=== PATIENT | female | born 1975 | race Caucasian/White ===

== ENCOUNTER 2016-11-21 05:07 | Inpatient (IN) ==
[2016-11-21] MEDS ORDERED: Ondansetron 4 MG/2 ML VIAL IVP PRN (10:06)
[2016-11-21] MEDS ORDERED: Naloxone 0.4 MG/ML INJ IVP PRN (10:06)
[2016-11-21] MEDS ORDERED: Acetaminophen 325 MG TABLET PO PRN (10:06)
[2016-11-21] MEDS ORDERED: *HR* LORazepam 2 MG/ML VIAL IVP PRN (10:24)
[2016-11-21] MEDS: 0.9 % Sodium Chloride 1,000 ML IVC SCH (11:42)
--- NOTE | 2016-11-21 13:31 | Internal Med History&Physical ---
<Adria Uriarte - Last Filed: 11/21/16 15:39> Date of Encounter: 11/21/16 Time of Encounter: 09:45 Assessment and Plan (1) Altered mental status Current visit: Yes Status: Acute Patient presents with acute altered mental status related to her current overdose. She is somnolent during examination and responds little to none to questions posed to her. She did report that she took an overdose of her seizure medication Vimpat. Her urine tox screen is positive for benzodiazepines, opiates , oxycodone, and marijuana. Patient to be placed as NPO due to AMS and somnolence. Dysphagia screen ordered. Seizure precautions ordered with padded bed rails, psychiatric consult, sitter, and safety/falls precautions. Ativan ordered 1 mg Q6 PRN for agitation/anxiety. Patient to be monitored closely for signs of increased depression, agitation, or suicidal ideations. Qualifiers: Altered mental status type: somnolence Qualified Code(s): R40.0 - Somnolence (2) Polysubstance abuse Current visit: Yes Status: Acute Patient presents with acute polysubstance abuse as evidenced by her urine tox screen which was positive for oxycodone, benzodiazepines, opiates, and marijuana. It is unclear if the patient's intake of the polypharmacy was intentional as an overdose attempt as the patient is unable to verify this. Patient has a history of previous suicide attempt by drinking Drano. Psychiatric consult and sitter ordered. (3) Hypokalemia Current visit: Yes Status: Acute Patient presents with hypokalemia related to current potassium level of 3.4. Patient to receive IV potassium of 10 Meq x1. Follow-up labs ordered to monitor level. (4) Depression Current visit: Yes Status: Chronic Patient has a history of chronic depression that she has previously been treated for but is currently not taking any prescriptions for this diagnosis. Will monitor patient for signs of increasing depression/suicidal ideations. Sitter ordered. Qualifiers: Depression Type: unspecified Qualified Code(s): F32.9 - Major depressive disorder, single episode, unspecified (5) DVT prophylaxis Current visit: Yes Status: Acute Patient to be placed on DVT prophylaxis due to current admission protocol and bed rest status. Heparin 5,000 units SQ Q8 ordered. Internal Medicine - H&P: HPI Chief complaint: Altered Mental Status Admitted From: Emergency Dept Plans for Post Hospital Care: Home History of present illness: Ms. Baron is a 41 year old female who presents from the ED with chief complaint of altered mental status. During examination, patient is somnolent and barely responds or answers to questions posed to her. Patient is alert and oriented x0. Notes from the ED admission state that the patient's and daughter report a history of seizures in the patient for which she takes Vimpat. Patient's reports she is not currently taking any benzodiazepines or pain medications to his knowledge, but was taking an antibiotic for UTI. He states she had a grand mal type seizure last night when she got up from the couch. He states she fell over and experienced decreased responsiveness. Patient's family reports loss of appetite, malaise, seizure, weakness, difficulty walking, and decreased responsiveness. They deny chest pain, recent illness, cough, diaphoresis, fever, chills, headaches, nausea, vomiting, shortness of breath, diarrhea, or changes in vision. Patient has a medical history including seizures, thyroid disease, and valvular heart disease. Patient's family reports she uses alcohol occasionally, as well as smokes marijuana. Patient's tox screen is positive for opiates, oxycodone, benzodiazepines, and marijuana. It is unclear at this point if the patient's overdose was an intentional suicide attempt. Patient is at high risk based on current symptoms and positive tox screen for neurological, cardiac, and respiratory decline and will be placed as inpatient status with psychiatric consult ordered as well as sitter. Patient will be placed is nothing by mouth with seizure precautions including padded bedrails and Ativan 1 mg every 6 when necessary. Orders placed for urinalysis, test, routine EKG, IV fluids , and potassium replacement of 10 Meq 1. Patient to be monitored very closely. Time spent with patient 30 minutes. Past Med Surg Social Fam HX - Past Medical History Source: obtained from family Medical history: seizures, thyroid disease, valvular heart disease, other Psychiatric history: anxiety, panic disorder, other - Past Surgical History Surgical History: orthopedic, other, thyroidectomy, other - Social History Smoking Status: Current every day smoker Packs per day: 1 PPD Smokeless Tobacco Status: No Alcohol use: occasionally Drug use: marijuana Current living situation: Home, With Family Activity Level: Independent ambulation Recent Out of Country Travel Within the Last 8 Weeks: No Exposure or Possible Exposure to Illness During Travel: No - Family History Father Race: Family Member Ethnicity: Non- Living Status: Still Living Hx Family Cardiac Disorders: Yes (HD) Internal Medicine - H&P: Meds Lacosamide [Vimpat] 200 mg PO BID 11/21/16 [History] Allergies Erythromycin Base Allergy (Verified 11/21/16 14:01) Hives hydrocodone [From Vicodin] Allergy (Verified 11/21/16 14:01) Hives meperidine [From Demerol] Allergy (Verified 11/21/16 14:01) Hives Penicillins [PCN] Allergy (Verified 11/21/16 14:01) Hives Sulfa (Sulfonamide Antibiotics) Allergy (Verified 11/21/16 14:01) Hives vancomycin Allergy (Verified 11/21/16 14:01) Hives ROS unobtainable: due to mental status All Systems PM: A 10-system review of systems was performed and is negative for pertinent findings except as documented above in the HPI. - Constitutional Vitals: Resp BP Pulse Ox 20 131/82 95 11/21/16 06:41 11/21/16 06:41 11/21/16 08:05 General appearance: Present: A&O X 0, no acute distress, underweight - Head Head exam: Present: atraumatic, normocephalic - ENT ENT exam: Present: normal exam, normal external ear exam - Neck Neck exam general surgery: Present: normal inspection, supple, trachea midline. Absent: lymphadenopathy - Respiratory Respiratory exam: Present: CTAB. Absent: accessory muscle use, rales, rhonchi, wheezes - Cardiovascular Cardiovascular exam: Present: RRR, +S1, +S2. Absent: diastolic murmur, gallop, rubs, systolic murmur - GI/Abdominal GI/Abdominal exam: Present: normal bowel sounds, soft, no peritoneal signs. Absent: distended, tenderness - Rectal Rectal exam: Present: deferred - Additional comments: exam deferred. - Extremities Exam Extremities exam: Present: warm, radial pulses palpable and symetrical. Absent : calf tenderness, cyanotic, pedal edema - Back Exam Back exam: Present: normal inspection - Neurological Exam Neurological exam: Present: altered - Skin Skin exam: Present: dry, intact - VTE Documentation of Mechanical Device: Intermittent pneumatic compression device <Tellez-Jace Martinez - Last Filed: 11/21/16 16:33> Date of Encounter: 11/21/16 Internal Medicine - H&P: HPI History of present illness: Ms. Baron is a 41 year old female All Systems PM: A 10-system review of systems was performed and is negative for pertinent findings except as documented above in the HPI. - Constitutional Vitals: Pulse Resp BP Pulse Ox 56 18 118/75 96 11/21/16 15:46 11/21/16 15:46 11/21/16 15:46 11/21/16 15:46 - Attending Attestation I have seen and examined the patient. I have reviewed the orders and the note. Patient is a 41-year-old female with a past history of seizure disorder, thyroid disease, history of valvular heart disease, anxiety disorder and depression. Patient presented to the ED with altered mental status. On examination patient is drowsy but she is arousable. She is able to answer some questions and able to verbalize. She is able to follow simple commands. Her urine drug screen is positive for benzos, opiates, oxycodone and marijuana. Patient states that she takes oxycodone and marijuana recreationally. She denies cocaine use or heroin use. Patient has been somnolent since admission. Psychiatry has evaluated the patient and recommendations reviewed. Patient has acute encephalopathy likely metabolic secondary to possible overdose of oxycodone and benzodiazepines and opiates. Patient will require supportive care and IV fluids. She will be nothing by mouth. No family members present during my examination. Patient has been explained about her condition and plan of care. No unanswered questions. CODE STATUS full code. Heart rate 56, blood pressure 118/75, O2 sat 96% on room air. Heart S1, S2 no murmurs rubs. Lungs bilateral good entry no wheezes or crackles. Abdomen soft nontender no masses or guarding. Extremities all pulses strong and regular no edema. Neurological patient is drowsy but easily arousable, able to follow simple commands and able to verbalize, no obvious focal deficits.
--- NOTE | 2016-11-21 14:09 | Consult Note ---
Date of Encounter: 11/21/16 Time of Encounter: 13:45 Assessment & Recommendation (1) Altered mental status Current visit: No Status: Acute Assessment & Recommendation: Patient apparently took an overdose of her seizure medications in addition to whatever medication she may have taken that her was not aware of. She does appear to be confused and somnolent related to this overdose. Qualifiers: Altered mental status type: somnolence Qualified Code(s): R40.0 - Somnolence (2) Adjustment disorder with disturbance of conduct Current visit: Yes Status: Acute Assessment & Recommendation: Per , patient has impulsively hurt herself in the past when the relationship is not doing well. Apparently, and they have been considering leaving the relationship and she verbalized him that she overdosed on pills because of this. Patient has a history of impulsive behavior and recent overdose. Continue one to one. We will continue to monitor to determine if admission to 1A as necessary. (3) Depression Current visit: Yes Status: Acute Assessment & Recommendation: Patient has been treated for depression by her outpatient provider. Outpatient records reviewed. Currently no treatment for this. Patient has not seen her PCP in over 6 months. Because patient is still confused we will hold off on recommending any kind of antidepressants or intervention for this. Qualifiers: Depression Type: unspecified Qualified Code(s): F32.9 - Major depressive disorder, single episode, unspecified (4) Polysubstance abuse Current visit: Yes Status: Acute Assessment & Recommendation: Patient has urine tox positive for opiates, benzos, marijuana. It is unclear if this was recreational or if she took these medications as a part of an overdose. History of Present Illness Patient: new to practice Requesting Physician: Madhu Damian MD Reason for consult: Overdose attempt History of present illness: Ms. Baron is a 41 year old female with a history of depression and anxiety as well as a seizure disorder who presented to the hospital with altered mental status brought by EMS after her called them. Patient is somewhat groggy and states that she does not exactly remember what brought her to the hospital. She is oriented to person only at this time. She denies feeling depressed now. She denies recent suicide attempts or suicidal ideation. Spoke with patient's En at phone number [phone]. He states that yesterday evening patient was acting normally but started to become sleepy and looked like she may have had a seizure. He went to help her leg out of the bedroom and states that she then started vomiting and appeared to her like she was having another seizure. At that point she called 911. He states that their relationship has a lot of ups and downs and she was upset because he was thinking of leaving. She apparently did verbalize to him that she took all of her seizure medication. He is not aware of what other drug she might use but did state that she told him that she took a Percocet and Xanax yesterday as well. He believes that patient's behavior is attention seeking. To his knowledge she has never been admitted to a psychiatric facility. He was aware of the previous attempt of her drinking Drano back in February 2016. This, according to him, was also attention seeking behavior relating to another argument that they had. CC: Madhu Damian MD Past Med Surg Social Fam HX - Past Medical History Medical history: seizures, thyroid disease, valvular heart disease, other - Past Psychiatric History Psychiatric history: Reports: anxiety, depression, prior suicide attempt Past psychiatric history details: Patient has one previous suicide attempt at drinking Drano last February. She was not admitted psychiatrically for this. reports that she receives mental health treatment from her outpatient provider. Last appointment with her [facility] nurse practitioner was in March 2016. That also the last time she saw her neurologist. No previous admissions here at [facility]. She was taking Paxil one time for depression. Family psychiatric history: Unknown Family History of Suicide: Unknown - Past Surgical History Surgical History: orthopedic, other, thyroidectomy, other - Social History Smoking Status: Current every day smoker Smokeless Tobacco Status: No Alcohol use: occasionally Drug use: marijuana, prescription drug abuse Current living situation: With Family Activity Level: Independent ambulation - Family History Father History Unknown: Yes Race: Family Member Ethnicity: Non- Living Status: Still Living Hx Family Cardiac Disorders: Yes (HD) Medications & Allergies Lacosamide [Vimpat] 200 mg PO BID 11/21/16 [History] Allergies Erythromycin Base Allergy (Verified 11/21/16 14:01) Hives hydrocodone [From Vicodin] Allergy (Verified 11/21/16 14:01) Hives meperidine [From Demerol] Allergy (Verified 11/21/16 14:01) Hives Penicillins [PCN] Allergy (Verified 11/21/16 14:01) Hives Sulfa (Sulfonamide Antibiotics) Allergy (Verified 11/21/16 14:01) Hives vancomycin Allergy (Verified 11/21/16 14:01) Hives Review of Systems ROS unobtainable: due to patient condition Mental Status Exam Patient orientation: Yes Person Level of alertness: Sedated Patient appearance: Unkempt Behavior: other (Confused) Psychomotor activity: Slowed Eye contact: No Eye Contact Mood description: Euthymic/stable Affect description: other (Sleepy, lethargic) Speech pattern: Slowed, Rambling Speech volume: Soft/Quiet Thought process: Slowed Thinking Thought content: No Suicidal ideation, No Homicidal ideation Perceptual disturbances: Yes Reacting to internal stimuli Attention span: Unable to Focus, Unable to Sustain Attention Memory description: Immediate Impaired, Recent Impaired, Remote Impaired Patient reliability: Not Reliable Historian Intelligence estimate: Average Judgment: Poor Insight: None Results - Vital Signs Vital signs: Resp BP Pulse Ox 20 131/82 95 11/21/16 06:41 11/21/16 06:41 11/21/16 08:05 - Labs Labs: Laboratory Last Values Serum , Qual Negative (Negative) 11/21/16 11:00 Consult Discharge Plan - Plan Referrals: NONE,PCP [Primary Care Provider] -
[2016-11-21] MEDS: *HR* Heparin 5,000 UNIT/ML VIAL SQ SCH ×2 (14:53→23:57)
[2016-11-22] MEDS: 0.9 % Sodium Chloride 1,000 ML IVC SCH (04:37)
[2016-11-22 04:45] LABS: Basophils % 0.3 %; Hematocrit 39.5 % (35.3-44.9); Immature Granulocytes % 0.1 % (0-4); Lymphocytes # 2.1 K/mcL (0.6-4.6); Lymphocytes % 29.4 %; Mean Corpuscular HGB Conc 32.9 g/dL (31.6-35.5); Mean Corpuscular Hemoglobin 29.2 pg (28.0-33.3); Mean Corpuscular Volume 88.8 fL (83.0-100.0); Mean Platelet Volume 9.9 fL (9.4-12.4); Monocytes # 0.6 K/mcL (0.0-1.3); Monocytes % 8.4 %; Neutrophils # 4.4 K/mcL (1.6-8.9); Platelet Count 198 K/mcL (140-400); Red Blood Count 4.45 M/mcL (3.82-4.97); Segmented Neutrophils % 61.8 %
[2016-11-22 04:47] LABS: INR 1.1; Prothrombin Time 12.3 Seconds (9.4-12.1)
[2016-11-22 04:49] LABS: Activated Partial Thrombo Time 34.2 Seconds (26.0-36.0)
[2016-11-22 04:57] LABS: Alanine Aminotransferase 7 Units/L (0-55); Albumin 3.6 g/dL (3.5-5.0); Albumin/Globulin Ratio 1.4 (1.1-2.2); Alkaline Phosphatase 61 Units/L (38-126); Aspartate Amino Transferase 13 Units/L (5-34); BUN/Creatinine Ratio 7 (6-26); Bilirubin,Total 0.7 mg/dL (0.2-1.2); Blood Urea Nitrogen 5 mg/dL (7-20); Calcium 8.6 mg/dL (8.6-10.8); Carbon Dioxide 25 mEq/L (19-29); Chloride 112 mEq/L (98-109); Chol/HDL Ratio 3.4 (0-4.9); Cholesterol 177 mg/dL (< 200); Globulin 2.6 g/dL (2.4-3.5); Glucose 98 mg/dL (70-99); HDL Cholesterol 52 mg/dL (40-59); LDL Cholesterol,Calculated 115 mg/dL (0-99); Magnesium 1.9 mg/dL (1.6-2.6); Osmolality,Calculated 291 (280-300); Potassium 3.9 mEq/L (3.5-4.5); Sodium 142 mEq/L (136-145); Total Protein 6.2 g/dL (6.0-8.3); Triglycerides 52 mg/dL (< 150); eGFR For African Americans > 60 (> 60); eGFR For Non-African Americans > 60 (> 60)
[2016-11-22 07:14] VITALS: BP 127/95
--- NOTE | 2016-11-22 08:43 | Internal Med Progress Note ---
Date of Encounter: 11/22/16 Time of Encounter: 08:40 - Subjective Interval history: Pt seen and examined. She states she is doing well this morning and has no suicidal or homicidal thoughts at this time and claims that she took a few extra doses of her Vimpat after having a seizure last night. She is adamant about going home today and states she has a ride coming up in an hour. - Constitutional Vitals: Temp Pulse Resp BP Pulse Ox 97.4 F L 72 16 127/95 99 11/22/16 07:00 11/22/16 07:00 11/22/16 07:00 11/22/16 07:00 11/22/16 08:00 General appearance: Present: A&O X 0, no acute distress, underweight Internal Medicine: Result - Labs CBC & Chem 7: 11/22/16 04:22 11/22/16 04:22 Labs: Short CBC 11/22/16 Range/Units 04:22 WBC 7.2 (4.3-11.1) K/mcL Hgb 13.0 (11.5-15.4) g/dL Hct 39.5 (35.3-44.9) % Plt Count 198 (140-400) K/mcL Neutrophils # 4.4 (1.6-8.9) K/mcL BMP 11/22/16 04:22 Sodium 142 Potassium 3.9 Chloride 112 H Carbon Dioxide 25 BUN 5 L Creatinine 0.74 Glucose 98 Calcium 8.6 Liver Function 11/22/16 Range/Units 04:22 Total Bilirubin 0.7 (0.2-1.2) mg/dL AST 13 (5-34) Units/L ALT 7 (0-55) Units/L Alkaline Phosphatase 61 (38-126) Units/L Albumin 3.6 (3.5-5.0) g/dL - ABG Interpretation ABG results: PT/INR, D-dimer PT 12.3 Seconds (9.4-12.1) H 11/22/16 04:22 - VTE Documentation of Mechanical Device: Intermittent pneumatic compression device Consult Discharge Plan - Plan Referrals: NONE,PCP [Primary Care Provider] -
[2016-11-22] MEDS ORDERED: Nicotine 14 MG PATCH.TD24 TD SCH (09:00)
[2016-11-22] MEDS ORDERED: Pantoprazole 40 MG VIAL IVP SCH (09:00)
--- NOTE | 2016-11-22 12:33 | Psychiatry Progress Note ---
Date of Encounter: 11/22/16 Time of Encounter: 12:00 Subjective Interval history: Heather is seen today for follow-up after recent overdose on multiple drugs and alcohol as well as her seizure meds. Patient admits that she did overuse medication and that she was very upset by Monika she had with her and wanted to "let loose." She admits that this was an unsafe decision but states she was not trying to kill himself. We also discussed that she has a previous suicide attempt back in February patient admits that she did try to kill himself then. We discussed that this behavior is somewhat alarming and patient agreed that it was. She was hesitant to agree to stay in the hospital for psychiatric treatment and would prefer to go home with outpatient follow-up. She did not get outpatient follow-up after her overdose with Jodie and we discussed that that did not prevent this particular incident. She denies suicidal ideations today. She does report depression and anxiety. She does have relationship issues with which exacerbated problems. She is currently on no psych meds. We also discussed the importance of self-care patient states that she sees her neurologist once a year. Outpatient records have been reviewed and patient has no follow-up appointment scheduled for either her PCP or her neurologist. When asked how she is going to get more seizure medication she admits she will need to call the doctor because she does not take it as prescribed. Review of Systems Constitutional: Denies: fever, chills, weakness, weight change Eyes: Denies: eye pain, vision change Ears, Nose, Throat: Denies: ear pain, throat pain, dental pain, hearing loss, congestion Cardiovascular: Denies: chest pain, palpitations, dyspnea on exertion Respiratory: Denies: cough, dyspnea, wheezes Gastrointestinal: Denies: abdominal pain, nausea, vomiting, diarrhea, constipation Musculoskeletal: Denies: joint swelling, joint pain Neurological: Denies: headache, weakness, numbness, memory loss Psychiatric: Reports: depression, anxiety. Denies: suicidal ideation Objective: Exam Patient orientation: Yes Person, Yes Time, Yes Place Level of alertness: Alert Patient appearance: Appropriate Behavior: guarded Psychomotor activity: Normal Eye contact: Minimal Contact Mood description: Euthymic/stable Affect description: dysphoric Speech pattern: Normal rate, Normal rhythm, Normal tone Speech volume: Normal Thought process: Linear Thought content: No Suicidal ideation, No Homicidal ideation, No Overt delusions Perceptual disturbances: No Auditory hallucinations, No Visual hallucinations Judgment: Poor Insight: None Results - Vital Signs Vital Signs: Temp Pulse Resp BP Pulse Ox 97.4 F L 72 16 127/95 99 11/22/16 07:00 11/22/16 07:00 11/22/16 07:00 11/22/16 07:00 11/22/16 08:00 - Labs Labs: Laboratory Results - last 24 hr 11/22/16 11/22/16 11/22/16 04:22 04:22 04:22 WBC 7.2 RBC 4.45 Hgb 13.0 Hct 39.5 MCV 88.8 MCH 29.2 MCHC 32.9 RDW 13.0 Plt Count 198 MPV 9.9 Immature Gran % 0.1 Seg Neutrophils % 61.8 Lymphocytes % 29.4 Monocytes % 8.4 Eosinophils % 0.0 Basophils % 0.3 Neutrophils # 4.4 Lymphocytes # 2.1 Monocytes # 0.6 Eosinophils # 0.0 Basophils # 0.0 PT 12.3 H INR 1.1 APTT 34.2 Sodium 142 Potassium 3.9 Chloride 112 H Carbon Dioxide 25 BUN 5 L Creatinine 0.74 Est GFR ( Amer) > 60 Est GFR (Non-Af Amer) > 60 BUN/Creatinine Ratio 7 Glucose 98 Calculated Osmolality 291 Calcium 8.6 Magnesium 1.9 Total Bilirubin 0.7 AST 13 ALT 7 Alkaline Phosphatase 61 Serum Total Protein 6.2 Albumin 3.6 Globulin 2.6 Albumin/Globulin Ratio 1.4 Triglycerides 52 Cholesterol 177 LDL Cholesterol, Calc 115 H VLDL Cholesterol, Calc 10 HDL Cholesterol 52 Cholesterol/HDL Ratio 3.4 Assessment and Plan (1) Adjustment disorder with disturbance of conduct Current visit: Yes Status: Acute Plan: Continue hospitalization, Close observation, Suicide Precautions per unit protocol Additional Plan: Patient has made multiple impulsive attempts to hurt herself recently. She is minimizing this and is also not taking care of her medical problems appropriately. We discussed the concern for continued attempts and what may happen and we do not intervene with more positive coping strategies and support network. Patient verbalizes an understanding of concerns over for her to do this outpatient. Patient has been filled out. Recommend addition to 1A under observation status. Risks, benefits, side effects, alternatives discussed w/pt: Yes Patient agreeable to treatment: Yes (2) Depression Current visit: Yes Status: Chronic Additional Plan: We will address depression issues once patient is admitted to 1A. Qualifiers: Qualified Code(s): F32.9 - Major depressive disorder, single episode, unspecified (3) Polysubstance abuse Current visit: Yes Status: Acute Consult Discharge Plan - Plan Referrals: NONE,PCP [Primary Care Provider] -
--- NOTE | 2016-11-22 12:35 | Discharge Summary ---
<Junaid Ball - Last Filed: 11/22/16 12:33> Date of Encounter: 11/22/16 Time of Encounter: 08:40 - Discharge Diagnosis (1) Adjustment disorder with disturbance of conduct Priority: Primary Status: Acute (2) Polysubstance abuse Priority: Secondary Status: Acute (3) Depression Priority: Secondary Status: Chronic Qualifiers: Depression Type: unspecified Qualified Code(s): F32.9 - Major depressive disorder, single episode, unspecified - Discharge Medications Home Medications: Lacosamide [Vimpat] 200 mg PO BID 11/21/16 [History] Allergies/Adverse Reactions: Allergies Erythromycin Base Allergy (Verified 11/21/16 14:01) Hives hydrocodone [From Vicodin] Allergy (Verified 11/21/16 14:01) Hives meperidine [From Demerol] Allergy (Verified 11/21/16 14:01) Hives Penicillins [PCN] Allergy (Verified 11/21/16 14:01) Hives Sulfa (Sulfonamide Antibiotics) Allergy (Verified 11/21/16 14:01) Hives vancomycin Allergy (Verified 11/21/16 14:01) Hives Procedures/tests Complete & Pending: Procedures Performed prior 72 hours Category Date Time Status ECG 12 lead ECG [ECG] Routine Y 11/21/16 10:06 Ordered Date of admission: 11/21/16 10:06 Primary care physician: PCP NONE Consults: 11/21/16 10:09 Consult to Syrup Filterer [CONS] Routine Reason for SW Consult: Patient presents with postive urine tox screen and apparent drug overdose 11/21/16 10:14 Consult to Psychiatry [CONS] Routine Consulting Provider: Psychiatry [place] Reason for Consult: Possible intentional suicide attempt d/t drug overdose. Tox screen is positive for opiates, oxycodone, benzos, and marijuana Call Completed: Yes Discharging clinician: Junaid Ball Anticipated date of discharge: 11/22/16 - Patient Status Disposition: Transfer Psychiatric Hosp Condition: Good Functional capacity at discharge: independent ambulation Overall status at discharge: patient is progressing back to baseline - Discharge Instructions Follow Up With: NONE,PCP [Primary Care Provider] - - Diet and Activity Activity: increase activity as tolerated Diet: regular diet Interval History: Pt seen and examined. She states she is doing well this morning and has no suicidal or homicidal thoughts at this time and claims that she took a few extra doses of her Vimpat after having a seizure last night. She is adamant about going home today and states she has a ride coming up in an hour. Hospital course: Ms. Baron is a 41 year old female who presented to [place] ED with altered mental status following a suspected seizure. Apparently the called the EMS after she supposedly took too much of seizure medications. Per documentation , the only prescription she has at home was Lacosamide, but her UDS was positive for opiates, benzos, THC. She does have history of depression and had a suicide attempt last year where she drank Drano. She remained hemodynamically stable and lab work was unremarkable. Patient was eager to go home today but after a follow up evaluation by our psychiatrist, it was decided that she would be admitted to 1A inpatient psychiatric unit. - Time Spent with Patient Total time spent providing and/or coordinating discharge services: Greater than 30 minutes - Constitutional Vitals: Temp Pulse Resp BP Pulse Ox 97.4 F L 72 16 127/95 99 11/22/16 07:00 11/22/16 07:00 11/22/16 07:00 11/22/16 07:00 11/22/16 08:00 General appearance: Present: cooperative, A&O X 3, no acute distress, underweight - Head Head exam: Present: atraumatic, normocephalic - Eye Eye exam: Present: PERRL, conjuntiva pink, sclera anicteric - Neck Neck exam general surgery: Present: supple, trachea midline. Absent: lymphadenopathy - Respiratory Respiratory exam: Present: CTAB. Absent: accessory muscle use, rales, rhonchi, wheezes - Cardiovascular Cardiovascular exam: Present: RRR, +S1, +S2. Absent: diastolic murmur, gallop, rubs, systolic murmur - GI/Abdominal GI/Abdominal exam: Present: normal bowel sounds, soft, no peritoneal signs. Absent: distended, tenderness - Extremities Exam Extremities exam: Present: warm, radial pulses palpable and symetrical. Absent : calf tenderness, cyanotic, pedal edema - Neurological Exam Neurological exam: Present: alert, oriented X3, no focal deficits. Absent: facial droop, speech deficit - Skin Skin exam: Present: dry, intact - VTE Documentation of Mechanical Device: Intermittent pneumatic compression device <Daniele Matute - Last Filed: 11/22/16 18:09> Date of Encounter: 11/22/16 - Discharge Diagnosis (1) Overdose Priority: Primary Status: Acute Qualifiers: Encounter type: subsequent encounter Injury intent: intentional self-harm Qualified Code(s): T50.902D - Poisoning by unspecified drugs, medicaments and biological substances, intentional self-harm, subsequent encounter (2) Polysubstance abuse Status: Acute (3) Adjustment disorder with disturbance of conduct Status: Acute (4) Suicidal ideations Priority: Primary Status: Acute (5) Hypokalemia Priority: Secondary Status: Resolved Procedures/tests Complete & Pending: Procedures Performed prior 72 hours Category Date Time Status ECG 12 lead ECG [ECG] Routine Y 11/21/16 10:06 Ordered Date of admission: 11/21/16 10:06 Primary care physician: PCP NONE Consults: 11/21/16 10:09 Consult to Syrup Filterer [CONS] Routine Reason for SW Consult: Patient presents with postive urine tox screen and apparent drug overdose 11/21/16 10:14 Consult to Psychiatry [CONS] Routine Consulting Provider: Psychiatry [place] Reason for Consult: Possible intentional suicide attempt d/t drug overdose. Tox screen is positive for opiates, oxycodone, benzos, and marijuana Call Completed: Yes Hospital course: Ms. Baron is a 41 year old female - Time Spent with Patient Total time spent providing and/or coordinating discharge services: 38min - Constitutional Vitals: Temp Pulse Resp BP Pulse Ox 97.4 F L 72 16 127/95 99 11/22/16 07:00 11/22/16 07:00 11/22/16 07:00 11/22/16 07:00 11/22/16 08:00 - Attending Attestation I examined this patient and my medical decision-making was reviewed with the Resident Physician on 11/22/16. I agree with the documented findings, disposition and treatment plan as described except to the extent set forth below. Ms Baron was admitted for medication OD and seizure with concern for suicidal ideation. She is no alert and interactive. She is afebrile with stable vitals. She has been seen by psych and is to be admitted to inpatient unit. Exam Alert. Comfortable Mucus membranes moist Heart reg No wheeze Plan D/C to inpatient psych unit.
[2016-11-22] MEDS ORDERED: *HR* Heparin 5,000 UNIT/ML VIAL SQ SCH (18:00)
[2016-11-22] MEDS ORDERED: Ondansetron ODT 4 MG TAB.RAPDIS SL ONE (18:19)
== END 2016-11-22 18:27 | DRG 812 ==
LOC: 2NENU → SUATTDRO 10:06
PROVIDERS: ADMIT Internal Medicine; ATTEND Internal Medicine

== ENCOUNTER 2016-11-22 18:30 | Inpatient (IN) ==
[2016-11-22] MEDS ORDERED: hydrOXYzine pamoate 25 MG CAPSULE PO PRN (18:36)
[2016-11-22] MEDS ORDERED: Haloperidol Lactate 5 MG/ML VIAL IM PRN (18:36)
[2016-11-22] MEDS ORDERED: Ibuprofen 400 MG TABLET PO PRN (18:36)
[2016-11-22] MEDS ORDERED: MOM Conc 10 ML UD.LIQ PO PRN (18:36)
[2016-11-22] MEDS ORDERED: *HR* LORazepam 1 MG TABLET PO PRN (18:36)
[2016-11-22] MEDS ORDERED: Mag Hydrox/Al Hydrox/Simeth 30 ML UDC PO PRN (18:36)
[2016-11-22] MEDS ORDERED: *HR* LORazepam 2 MG/ML VIAL IM PRN (18:36)
[2016-11-23] MEDS: Nicotine 14 MG PATCH.TD24 TD SCH (08:52)
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
[2016-11-23] MEDS: traZODone 50 MG TABLET PO PRN (20:57)
[2016-11-24] MEDS: Nicotine 14 MG PATCH.TD24 TD SCH (08:21)
--- NOTE | 2016-11-24 13:18 | Psychiatry Progress Note ---
Date of Encounter: 11/24/16 Time of Encounter: 13:00 Subjective Interval history: Patient seen today case d/w treatment team and patient showing some improvement. she has been talking about her stress and learning coping skills. she is still anxious and has nightmares and hypervigilant. denies side effects Review of Systems Psychiatric: Reports: depression, anxiety, irritability Objective: Exam Patient orientation: Yes Person, Yes Time, Yes Place Level of alertness: Alert Patient appearance: Appropriate Behavior: cooperative, anxious Psychomotor activity: Normal Eye contact: Maintains Eye Contact Mood description: Anxious Affect description: congruent with mood Speech pattern: Normal rate Speech volume: Normal Thought process: Intact Thought content: Yes Intact Judgment: Fair Insight: Partial Results - Vital Signs Vital Signs: Temp Pulse Resp BP 97.4 F L 57 16 129/84 11/24/16 08:15 11/24/16 08:15 11/24/16 08:15 11/24/16 08:15 Assessment and Plan (1) Depression Current visit: No Status: Chronic Qualifiers: Depression Type: unspecified Qualified Code(s): F32.9 - Major depressive disorder, single episode, unspecified (2) PTSD (post-traumatic stress disorder) Current visit: Yes Status: Acute Risks, benefits, side effects, alternatives discussed w/pt: Yes Patient agreeable to treatment: Yes (3) Overdose Current visit: No Status: Acute Risks, benefits, side effects, alternatives discussed w/pt: Yes Patient agreeable to treatment: Yes Qualifiers: Encounter type: initial encounter Injury intent: intentional self-harm Qualified Code(s): T50.902A - Poisoning by unspecified drugs, medicaments and biological substances, intentional self-harm, initial encounter Consult Discharge Plan - Plan Referrals: [facility] [Outside] - 12/01/16 12:00 pm (The above appointment is Stefania Low. When you come to your appointment, you will be completing paperwork, meeting with a mental health counselor, and developing a treatment plan. You will receive follow-up appointments for on-going services, which could include community support, mental health and substance abuse counseling, groups/partial hospitalization programming, and psychiatric medication management. When you come to your first appointment, you will have an orientation to the agency and you will meet with a counselor. Please bring the following with you to your first visit to the clinic: 1) proof of household income (two consecutive pay stubs, social security award letter, bank statement , statement letter from [facility], child support statement, IRS 1040 or W2 form, or a statement from the person who financially supports you stating they help provide for your basic needs), 2) proof of residency (drivers license, a piece of mail showing your address, a statement from person you live with verifying you live at their address), 3) your social security card, 4) photo ID, 5) your insurance card (if you have commercial insurance you must call to obtain a prior authorization number before you arrive to your first appointment) and 6) if you do not have insurance but have applied for Medicaid, please bring verification you have applied. ) [facility] Voice Data Communications Engineer [place] [Outside] - 12/23/16 4:00 pm (The above appointment is with Dr. Joseph Santiago, for primary health care and medication management services. Please arrive 15 minutes early to complete paperwork. Please bring your insurance card, photo ID and medications in their original bottles. If you are unable to keep this appointment, 24 hour business notice of cancellation is expected. )
[2016-11-24] MEDS: traZODone 50 MG TABLET PO PRN (20:34)
[2016-11-25] MEDS: Nicotine 14 MG PATCH.TD24 TD SCH (08:55)
--- NOTE | 2016-11-25 09:41 | Discharge Summary ---
Date of Encounter: 11/26/16 Time of Encounter: 09:00 Diagnosis - Discharge Diagnosis (1) Depression Status: Acute Qualifiers: Depression Type: major depressive disorder Major depression recurrence: recurrent Active/Remission status: currently active Major depression episode severity: moderate Qualified Code(s): F33.1 - Major depressive disorder, recurrent, moderate (2) PTSD (post-traumatic stress disorder) Status: Acute (3) Overdose Status: Acute Qualifiers: Encounter type: initial encounter Injury intent: intentional self-harm Qualified Code(s): T50.902A - Poisoning by unspecified drugs, medicaments and biological substances, intentional self-harm, initial encounter Medications - Discharge Medications Prescriptions: Escitalopram [Lexapro] 10 mg PO DAILY #30 tab Nicotine Patch [Nicoderm] 14 mg TD DAILY #14 traZODone [TraZODone] 50 mg PO HS #30 tab Lacosamide [Vimpat] 200 mg PO BID 11/21/16 [History] Escitalopram [Lexapro] 10 mg PO DAILY #30 tab 11/25/16 [Rx] Nicotine Patch [Nicoderm] 14 mg TD DAILY #14 11/25/16 [Rx] traZODone [TraZODone] 50 mg PO HS #30 tab 11/25/16 [Rx] Allergies Erythromycin Base Allergy (Verified 11/21/16 14:01) Hives hydrocodone [From Vicodin] Allergy (Verified 11/21/16 14:01) Hives meperidine [From Demerol] Allergy (Verified 11/21/16 14:01) Hives Penicillins [PCN] Allergy (Verified 11/21/16 14:01) Hives Sulfa (Sulfonamide Antibiotics) Allergy (Verified 11/21/16 14:01) Hives vancomycin Allergy (Verified 11/21/16 14:01) Hives Provider Date of admission: 11/22/16 18:30 Primary care physician: PCP NONE Assessment and Plan - Patient/Caregiver Discharge Instructions Diet: regular diet - Follow up Plan Follow up with: [facility] [Outside] - 12/01/16 12:00 pm (The above appointment is Stefania Low. When you come to your appointment, you will be completing paperwork, meeting with a mental health counselor, and developing a treatment plan. You will receive follow-up appointments for on-going services, which could include community support, mental health and substance abuse counseling, groups/partial hospitalization programming, and psychiatric medication management. When you come to your first appointment, you will have an orientation to the agency and you will meet with a counselor. Please bring the following with you to your first visit to the clinic: 1) proof of household income (two consecutive pay stubs, social security award letter, bank statement , statement letter from [facility], child support statement, IRS 1040 or W2 form, or a statement from the person who financially supports you stating they help provide for your basic needs), 2) proof of residency (drivers license, a piece of mail showing your address, a statement from person you live with verifying you live at their address), 3) your social security card, 4) photo ID, 5) your insurance card (if you have commercial insurance you must call to obtain a prior authorization number before you arrive to your first appointment) and 6) if you do not have insurance but have applied for Medicaid, please bring verification you have applied. ) [facility] Counseling Case Manager [place] [Outside] - 12/23/16 4:00 pm (The above appointment is with Dr. Joseph Santiago, for primary health care and medication management services. Please arrive 15 minutes early to complete paperwork. Please bring your insurance card, photo ID and medications in their original bottles. If you are unable to keep this appointment, 24 hour business notice of cancellation is expected. ) Overall status at discharge: Stable Disposition: Home, Self-Care Hospital Course Hospital course: Ms. Baron is a 41 year old female who was admitted with Od on medications and alcohol. patient during her stay also disclosed the trauma she went through and affecting her emotions. she was counselled , medications started and she complied with treatment plan and treatment plan denies side effects. has short and watermelon harvesting supervisor goals. pt at present is not suicidal and anxiety much better, depression stable at present , states this morning i woke up and i felt better , i am hopeful now. Time spent discussing smoking cessation with patient: 3 to 10 minutes Does patient wish to continue nicotine replacement upon disc: Yes (patient wants to continue it.) - Time Spent with Patient Total time spent providing and/or coordinating discharge services: Less than 30 minutes (pt at present stable and not danger to self/others, has good support.) Quality - Multiple Antipsychotics Patient discharged on 2 or more antipsychotic medications: No Procedures - Procedures Procedures: Medication Management, Crisis Stabilization, Supportive Therapy, Group Therapy, Psychoeducational Therapy Mental Status Exam - Mental Status Exam Patient orientation: Yes Person, Yes Time, Yes Place Level of alertness: Alert Patient appearance: Appropriate Behavior: calm, cooperative Psychomotor activity: Normal Eye contact: Maintains Eye Contact Mood description: Euthymic/stable Affect description: congruent with mood Speech pattern: Normal rate Speech Volume: Normal Thought process: Intact Thought Content: Yes Intact Judgment: Good Insight: Full
[2016-11-25 10:40] VITALS: BP 115/75
== END 2016-11-25 11:40 | disposition home or self-care (01) | DRG 812 ==
LOC: SUATTDRO 18:30 → 1ANU 18:30
PROVIDERS: ADMIT Student in an Organized Health Care Education/Training Program; ATTEND Psychiatry & Neurology Psychiatry